=== PATIENT | female | born 1980 | race Caucasian/White ===

== ENCOUNTER 2018-11-28 00:53 | Observation (INO) ==
[2018-11-28] MEDS ORDERED: Naloxone 0.4 MG/ML INJ IVP PRN (05:33)
[2018-11-28 06:58] LABS: Basophils % 0.4 %; Eosinophils # 0.2 K/mcL (0.0-0.6); Eosinophils % 2.5 %; Hematocrit 40.8 % (35.3-44.9); Hemoglobin 13.6 g/dL (11.5-15.4); Immature Granulocytes % 0.3 % (0-4); Lymphocytes # 2.7 K/mcL (0.6-4.6); Lymphocytes % 35.3 %; Mean Corpuscular HGB Conc 33.3 g/dL (31.6-35.5); Mean Corpuscular Hemoglobin 29.4 pg (28.0-33.3); Mean Corpuscular Volume 88.1 fL (83.0-100.0); Mean Platelet Volume 12.2 fL (9.4-12.4); Monocytes # 0.6 K/mcL (0.0-1.3); Monocytes % 7.9 %; Neutrophils # 4.2 K/mcL (1.6-8.9); Platelet Count 207 K/mcL (140-400); Red Blood Count 4.63 M/mcL (3.82-4.97); Segmented Neutrophils % 53.6 %; White Blood Count 7.7 K/mcL (4.3-11.1)
[2018-11-28 07:13] LABS: BUN/Creatinine Ratio 10 (6-26); Blood Urea Nitrogen 7 mg/dL (6-20); Calcium 9.2 mg/dL (8.6-10.3); Carbon Dioxide 25 mEq/L (23-29); Chloride 108 mEq/L (98-107); Glucose 107 mg/dL (70-105); Osmolality,Calculated 286 (280-300); Sodium 139 mEq/L (136-145); eGFR For African Americans > 60 (> 60); eGFR For Non-African Americans > 60 (> 60)
[2018-11-28] MEDS ORDERED: Isovue-370 500 ML BOTTLE IVP ONE (08:26)
[2018-11-28] MEDS ORDERED: Ringers Solution, Lactated 1,000 ML IVC SCH (08:30)
[2018-11-28] MEDS ORDERED: cephALEXin 500 MG CAPSULE PO SCH (09:00)
[2018-11-28 09:05] LABS: Alanine Aminotransferase 11 Units/L (7-52); Albumin 4.1 g/dL (3.5-5.7); Alkaline Phosphatase 72 Units/L (34-104); Aspartate Amino Transferase 13 Units/L (13-39); Bilirubin,Direct 0.1 mg/dL (0.0-0.2); Bilirubin,Indirect 0.6 mg/dL (0.0-1.2); Bilirubin,Total 0.7 mg/dL (0.3-1.0); Total Protein 6.5 g/dL (6.4-8.9)
[2018-11-28 09:06] LABS: Albumin/Globulin Ratio 1.7 (1.1-2.2); Globulin 2.4 g/dL (2.4-3.5)
[2018-11-28 09:19] LABS: Thyroid Stimulating Hormone 1.074 mcIU/mL (0.340-5.600)
[2018-11-28] MEDS: cephALEXin 500 MG CAPSULE PO SCH ×4 (10:17→19:41)
[2018-11-28] MEDS: *HR* Heparin 5,000 UNIT/ML VIAL SQ SCH (17:20)
[2018-11-29] MEDS: *HR* Heparin 5,000 UNIT/ML VIAL SQ SCH (06:03)
[2018-11-29 08:41] LABS: BUN/Creatinine Ratio 11 (6-26); Blood Urea Nitrogen 8 mg/dL (6-20); Calcium 9.1 mg/dL (8.6-10.3); Carbon Dioxide 25 mEq/L (23-29); Chloride 108 mEq/L (98-107); Glucose 109 mg/dL (70-105); Magnesium 1.8 mg/dL (1.6-2.6); Osmolality,Calculated 287 (280-300); Phosphorous 3.2 mg/dL (2.7-4.5); Potassium 4.1 mEq/L (3.5-5.1); Sodium 139 mEq/L (136-145); eGFR For African Americans > 60 (> 60); eGFR For Non-African Americans > 60 (> 60)
[2018-11-29] MEDS ORDERED: Aspirin Enteric Coated 81 MG Tablet PO SCH (09:31)
[2018-11-29] MEDS: cephALEXin 500 MG CAPSULE PO SCH ×3 (10:00→18:07)
[2018-11-29 11:53] VITALS: BP 92/60
== END 2018-11-29 18:13 | disposition home or self-care (01) ==
LOC: 2ANU → SUATTDRO 03:07
PROVIDERS: ADMIT Family Medicine; ATTEND Internal Medicine

== ENCOUNTER 2018-12-24 15:47 | Observation (INO) ==
[2018-12-24 17:06] LABS: Basophils % 0.7 %; Eosinophils # 0.3 K/mcL (0.0-0.6); Hematocrit 41.7 % (35.3-44.9); Hemoglobin 14.3 g/dL (11.5-15.4); Immature Granulocytes % 0.2 % (0-4); Lymphocytes # 2.2 K/mcL (0.6-4.6); Lymphocytes % 39.6 %; Mean Corpuscular HGB Conc 34.3 g/dL (31.6-35.5); Mean Corpuscular Hemoglobin 30.2 pg (28.0-33.3); Mean Platelet Volume 12.6 fL (9.4-12.4); Monocytes # 0.6 K/mcL (0.0-1.3); Monocytes % 10.4 %; Neutrophils # 2.5 K/mcL (1.6-8.9); Platelet Count 170 K/mcL (140-400); Prothrombin Time 11.1 Seconds (9.4-12.1); Red Blood Count 4.74 M/mcL (3.82-4.97); Red Cell Distribution Width 13.2 % (11.5-14.5); Segmented Neutrophils % 44.1 %; White Blood Count 5.6 K/mcL (4.3-11.1)
[2018-12-24 17:08] LABS: Activated Partial Thrombo Time 35.7 Seconds (26.0-36.0)
[2018-12-24 17:25] LABS: BUN/Creatinine Ratio 15 (6-26); Blood Urea Nitrogen 11 mg/dL (6-20); Calcium 9.4 mg/dL (8.6-10.3); Carbon Dioxide 23 mEq/L (23-29); Chloride 108 mEq/L (98-107); Glucose 110 mg/dL (70-105); Osmolality,Calculated 288 (280-300); Potassium 3.8 mEq/L (3.5-5.1); Sodium 139 mEq/L (136-145); eGFR For African Americans > 60 (> 60); eGFR For Non-African Americans > 60 (> 60)
[2018-12-24 17:27] LABS: Troponin I < 0.03 ng/mL (< 0.04)
[2018-12-24 17:39] LABS: Thyroid Stimulating Hormone 2.178 mcIU/mL (0.340-5.600)
[2018-12-24] MEDS ORDERED: Naloxone 0.4 MG/ML INJ IVP PRN (17:58)
[2018-12-24] MEDS: Nicotine 14 MG PATCH.TD24 TD SCH (20:09)
[2018-12-25 02:48] LABS: Basophils % 0.7 %; Eosinophils # 0.3 K/mcL (0.0-0.6); Eosinophils % 5.4 %; Hematocrit 38.9 % (35.3-44.9); Hemoglobin 13.1 g/dL (11.5-15.4); Immature Granulocytes % 0.2 % (0-4); Lymphocytes # 2.5 K/mcL (0.6-4.6); Lymphocytes % 45.7 %; Mean Corpuscular HGB Conc 33.7 g/dL (31.6-35.5); Mean Corpuscular Hemoglobin 29.6 pg (28.0-33.3); Mean Platelet Volume 12.4 fL (9.4-12.4); Monocytes # 0.5 K/mcL (0.0-1.3); Monocytes % 9.2 %; Neutrophils # 2.2 K/mcL (1.6-8.9); Platelet Count 205 K/mcL (140-400); Red Blood Count 4.42 M/mcL (3.82-4.97); Red Cell Distribution Width 13.3 % (11.5-14.5); Segmented Neutrophils % 38.8 %; White Blood Count 5.5 K/mcL (4.3-11.1)
[2018-12-25 03:08] LABS: BUN/Creatinine Ratio 13 (6-26); Blood Urea Nitrogen 11 mg/dL (6-20); Calcium 8.8 mg/dL (8.6-10.3); Carbon Dioxide 23 mEq/L (23-29); Chloride 108 mEq/L (98-107); Glucose 103 mg/dL (70-105); Magnesium 1.9 mg/dL (1.6-2.6); Osmolality,Calculated 288 (280-300); Potassium 3.8 mEq/L (3.5-5.1); Sodium 139 mEq/L (136-145); eGFR For African Americans > 60 (> 60); eGFR For Non-African Americans > 60 (> 60)
[2018-12-25 03:09] LABS: Troponin I < 0.03 ng/mL (< 0.04)
[2018-12-25] MEDS ORDERED: Ondansetron 4 MG/2 ML VIAL IVP ONE ×2 (05:52→20:24)
[2018-12-25] MEDS ORDERED: Acetaminophen 325 MG TABLET PO ONE (05:52)
[2018-12-25] MEDS ORDERED: *HR* Enoxaparin 40 MG/0.4 ML SYRINGE SQ SCH (06:00)
[2018-12-25] MEDS ORDERED: Aspirin 81 MG TAB.CHEW PO SCH (09:00)
[2018-12-25] MEDS: Diltiazem CD (24hr) 120 MG CAPSULE PO SCH (09:12)
[2018-12-25] MEDS: Loratadine 10 MG TABLET PO SCH (09:13)
[2018-12-25] MEDS: Nicotine 14 MG PATCH.TD24 TD SCH (12:40)
[2018-12-25] MEDS ORDERED: Acetaminophen IV 500 MG/50 ML INFUS..BTL IVPB ONE (20:24)
[2018-12-25] MEDS: Apixaban 5 MG TABLET PO SCH (22:48)
[2018-12-26 07:07] VITALS: BP 106/72
[2018-12-26] MEDS: Diltiazem CD (24hr) 120 MG CAPSULE PO SCH (08:47)
[2018-12-26] MEDS: Loratadine 10 MG TABLET PO SCH (08:47)
[2018-12-26] MEDS: Nicotine 14 MG PATCH.TD24 TD SCH (08:47)
[2018-12-26] MEDS: Apixaban 5 MG TABLET PO SCH (08:47)
== END 2018-12-26 13:38 | disposition home or self-care (01) ==
LOC: 2NENU 15:47 → EMEROOARM 15:47 → SUATTDRO 18:44 → 2NENU 19:50
PROVIDERS: ADMIT Student in an Organized Health Care Education/Training Program; ATTEND Internal Medicine

== ENCOUNTER 2019-11-11 10:00 | Inpatient (IN) ==
[2019-11-11] MEDS ORDERED: Naloxone 0.4 MG/ML INJ IVP PRN (11:53)
[2019-11-11 12:55] LABS: Hematocrit 41.8 % (35.3-44.9); Hemoglobin 13.8 g/dL (11.5-15.4); Mean Corpuscular Hemoglobin 28.9 pg (28.0-33.3); Mean Corpuscular Volume 87.6 fL (83.0-100.0); Mean Platelet Volume 11.9 fL (9.4-12.4); Platelet Count 195 K/mcL (140-400); Red Blood Count 4.77 M/mcL (3.82-4.97); Red Cell Distribution Width 13.2 % (11.5-14.5); White Blood Count 7.4 K/mcL (4.3-11.1)
[2019-11-11 13:14] LABS: BUN/Creatinine Ratio 10 (6-26); Blood Urea Nitrogen 7 mg/dL (6-20); Calcium 9.3 mg/dL (8.6-10.3); Carbon Dioxide 26 mEq/L (23-29); Chloride 106 mEq/L (98-107); Glucose 91 mg/dL (70-105); Magnesium 1.9 mg/dL (1.6-2.6); Osmolality,Calculated 284 (280-300); Potassium 3.6 mEq/L (3.5-5.1); Sodium 138 mEq/L (136-145); eGFR For African Americans > 60 (> 60); eGFR For Non-African Americans > 60 (> 60)
[2019-11-11] MEDS: DilTIAZem CD (24hr) 120 MG CAP.ER.24H PO SCH (15:20)
[2019-11-11] MEDS: Apixaban 5 MG TABLET PO SCH (19:42)
[2019-11-11] MEDS: (Buprenorphine Hcl/Naloxone Hcl [Buprenorphin-Naloxon SL SCH (19:43)
[2019-11-12] MEDS ORDERED: Regadenoson 0.4 MG/5 ML SYRINGE IVP ONE (06:16)
[2019-11-12] MEDS: Loratadine 10 MG TABLET PO SCH (11:29)
[2019-11-12] MEDS: DilTIAZem CD (24hr) 120 MG CAP.ER.24H PO SCH (11:29)
[2019-11-12] MEDS: Apixaban 5 MG TABLET PO SCH ×2 (11:29→21:05)
[2019-11-12] MEDS: (Buprenorphine Hcl/Naloxone Hcl [Buprenorphin-Naloxon SL SCH ×2 (12:40→21:05)
[2019-11-13] MEDS: Loratadine 10 MG TABLET PO SCH (08:07)
[2019-11-13] MEDS: Apixaban 5 MG TABLET PO SCH ×2 (08:07→20:05)
[2019-11-13] MEDS: DilTIAZem CD (24hr) 120 MG CAP.ER.24H PO SCH (08:07)
[2019-11-13] MEDS: (Buprenorphine Hcl/Naloxone Hcl [Buprenorphin-Naloxon SL SCH ×2 (08:08→20:04)
[2019-11-14] MEDS: (Buprenorphine Hcl/Naloxone Hcl [Buprenorphin-Naloxon SL SCH (07:34)
[2019-11-14 07:40] VITALS: BP 111/72
[2019-11-14] MEDS: Loratadine 10 MG TABLET PO SCH (08:01)
[2019-11-14] MEDS: Apixaban 5 MG TABLET PO SCH (08:01)
[2019-11-14] MEDS: DilTIAZem CD (24hr) 120 MG CAP.ER.24H PO SCH (08:01)
== END 2019-11-14 11:50 | disposition home or self-care (01) | DRG 309 ==
LOC: 2ANU
PROVIDERS: ADMIT Internal Medicine Clinical Cardiac Electrophysiology; ATTEND Internal Medicine Clinical Cardiac Electrophysiology